=== PATIENT | male | born 1955 | race Caucasian/White ===

== ENCOUNTER 2017-05-21 18:13 | Inpatient (IN) | payer MEDICARE ==
[~2017-05-21] VITALS: Ht 167.6 cm; Wt 85.0 kg
--- NOTE | ~2017-05-21 | CST ---
Cardiac Perfusion Imaging Demographics Patient Name OLLIE Reilly Gender Male Patient Number [id number] Race Visit Number [id number] Ethnicity or Corporate ID Room Number 431 Accession Number [id number] Height 72 inches Date of 1955 Weight 185 pounds Age 62 year(s) BSA 2.06 m Referring Physician Ghada Olivia BMI 25.09 kg/m Interpreting Sharmila Romero MD Date of study 05/22/2017 Physician PATRICIA Whitley Supervising MD/MLP Sharmila Romero MD NM Technologist Jorge A Meraz, [facility] Ordering Physician Sharmila Romero MD Stress [place] program technician Stress ECG Reading Sharmila Romero MD Nurse Sreedhar Kauffman Physician PATRICIA Anderson The procedure was explained in detail to the patient. Risks, complications and alternative treatments were reviewed. Written consent was obtained. Medications Reviewed with Patient prior to Procedure. Procedure Procedure Type: Nuclear Stress Test:Pharmacological, Lexiscan Procedure Start time: 05/22/2017 08:10 End time: 05/22/2017 08:22 Indications: Chest discomfort, Diabetes and Hypertension. Risk Factors The patient risk factors include:former tobacco use, hypertension and insulin treated diabetes mellitus. Conclusions Summary Perfusion Images: The overall quality of the study is good. Left ventricular cavity is noted to be normal on the stress and rest studies. There is no evidence of abnormal lung activity. The right ventricle is not visualized and cannot be assessed. Stress SPECT images and Rest SPECT images demonstrate homogenous tracer distribution throughout the myocardium except for a decrease in uptake in the area involving the inferior wall consistent with diaphragmatic attenuation. Gated SPECT imaging reveals normal myocardial thickening and wall motion. The left ventricular ejection fraction was calculated to be 61%. Impression ECG portion of stress test is clinically negative for ischemia by diagnostic criteria. Myocardial perfusion imaging is normal. The inferior wall matched defect is consistent with diaphragm attenuation. Overall left ventricular systolic function was normal without regional wall motion abnormalities. Compared to the prior study from Sep 2016, the current study reveals no change. Stress Protocols Resting ECG Normal sinus rhythm. Resting HR:63 bpm Resting BP:120/90 mmHg Stress Protocol:Pharmacologic Predicted HR: 157 bpm Test duration: 06:00 min Reason for termination:Infusion complete ECG Findings No ECG changes suggestive of ischemia. Arrhythmias No rhythm abnormality. Complications Procedure complication: None. Stress Interpretation Appropriate hemodynamic response to Lexiscan. No significant ST-T wave changes with Lexiscan. ECG portion is negative for ischemia by diagnostic criteria. Imaging Results Summed scores - Summed stress score: 5 - Summed rest score: 2 - Summed difference score: 3 Stress ejection Ejection fraction:62 % EDV :120 ml ESV :46 ml Stroke volume :74 ml LV mass :130 gr Imaging Protocols Rest Stress Isotope:Tc99m Myoview IV Isotope: Tc99m Myoview IV Isotope dose:10.5 mCi Isotope dose:31.9 mCi Date:05/22/2017 06:35 Date:05/22/2017 08:10 Technique: SPECT Technique: Gated Supine SPECT Supine IV remains in place after procedure. Scan Time:30 minutes post injection Scan Time:15-30 minutes post injection Procedure Medications - Regadenoson (Lexiscan) 0.4 mg IV over 10-15 sec. I.V. 0.4 mg. Medications administered per verbal order and read back to physician prior to administration. Medical History Admission Data Admission date: 05/21/2017 Admission Time: 20:35 Hospital Status: Inpatient. Signatures
--- NOTE | ~2017-05-21 | ECH ---
Transthoracic Echocardiography Report (TTE) Demographics Patient Name AMBIKA LEVIN Date of Study 05/22/2017 Patient Number [id number] Visit Number [id number] Date of 1955 Room Number 431 Accession Number [id number] Gender Male Age 62 year(s) Referring Ghada Olivia Mud Temperer Brittnee Alarcon Physician RDCS Physician Interpreting King Ayush De La Garza MD Surgical Technology Instructor Physician Supervising Ordering Physician Ghada Olivia MD/MLP Nurse Stress Network Operations Lead Conclusions Contractility Score Summary Normal Left Ventricular contractility was noted. Summary Technically adequate exam. The estimated left ventricular ejection fraction is 55-60%. No significant valvular abnormalities. Procedure Type of Study TTE procedure:Echo Complete SF. Procedure Date Date: 05/22/2017 Start: 09:42 AM Technical Quality: Adequate visualization Indications:Chest pain and Diabetes. Appropriate Use Criteria: 9 Height: 72 inches Weight: 185 pounds BSA: 2.06 m Rhythm: NSR HR: 69 bpm BP: 136/82 mmHg M-Mode/2D Measurements LV Diastolic Dimension: 5.11 cm LV Systolic Dimension: 3.6 cm LV Septum Diastolic: 0.81 cm LV PW Diastolic: 0.79 cm AO Root Dimension: 3.21 cm Cardiac Output: 4.92 l/min LA Dimension: 2.85 cm Cardiac Index: 2.39 l/min*m RV Diastolic Dimension: 2.84 cm LA volume index: 22 ml/m LVOT: 2.26 cm LVOT VTI: 17.78 cm RV Base: 2.7 cm LV Stroke volume: 71.29 ml RV Mid: 1.7 cm LV Stroke volume index: 34.61 ml/m TAPSE: 2.4 cm TDI-S': 14 cm/s Doppler Measurements AV Peak Velocity: 1.04 m/s MV Peak E-Wave: 0.81 m/s AV Peak Gradient: 4.3 mmHg MV Peak A-Wave: 0.54 m/s AV Mean Gradient: 2.82 mmHg MV E/A Ratio: 1.49 LVOT Peak Velocity: 0.78 m/s MV P1/2t: 60.1 msec AV Area (Continuity):3.16 cm MV Deceleration Time: 211.3 msec TR Velocity:2.64 m/s MV Area (PHT): 3.66 cm TR Gradient:27.88 mmHg PV Peak Velocity: 0.68 m/s Estimated RAP:3 mmHg PV Peak Gradient: 1.86 mmHg Estimated RVSP: 31 mmHg Estimated PASP: 30.88 mmHg E' Septal Velocity: 0.1 m/s A' Septal Velocity: 0.1 m/s E' Lateral Velocity: 0.14 m/s A' Lateral Velocity: 0.12 m/s RA Area: 11.06 cm Findings Left Ventricle Normal left ventricle size and function. Diastolic assessment reveals normal relaxation. Right Ventricle Normal right ventricle structure and function. Left Atrium Normal left atrial size. Right Atrium Normal right atrial size. Mitral Valve Normal mitral valve structure and function. Trivial mitral regurgitation by color Doppler. Aortic Valve The aortic valve is mildly sclerotic. Tricuspid Valve Normal tricuspid valve structure and function. Trivial tricuspid regurgitation by color Doppler. Normal pulmonary pressures. Pulmonic Valve The pulmonic valve is not well visualized. Pericardial Effusion No evidence of pericardial effusion. Miscellaneous Visualized portions of the aortic root and ascending aorta appear normal in size. Pleural Effusion No evidence of pleural effusion. Contractility Score LV regional wall motion:(0-Non visualized 1-Normal 2-Hypokinesis 3-Akinesis 4-Dyskinesis 5-Aneurysm) Signature
--- NOTE | 2017-05-24 12:56 | ER ---
ADMIT: 05/21/2017 RM/LOC: ER [facility] MR#: [id number] [id number] [place], [place] [address] AMBIKA LEVIN [address] [place] [address] Emergency Room Report SEX: M AGE: 62 : 1955 DATE: 05/21/2017 ADDENDUM: This patient comes to the ER because he has had chest pain for the last 12 hours. He states it comes and goes and really has difficulty telling me what seems to make it worse or better. The patient is here with his sister and denies any past medical history, but I am suspicions that he does have mild MR and is not a very good historian. He does say he has shortness of breath. On physical exam, his pain is over the left side of his chest, I cannot reproduce the pain. His abdomen is soft. Chest x-ray was negative. Cardiac enzymes were normal, but his blood glucose was 575 and to his knowledge, he has never been told he has diabetes. His sister says that three of their siblings have of an MD in their 50s. I did consult with Dr. Anderson concerning treatment of this patient. I then spoke with Dr. Urrutia, who is on city call and she will admit this patient. I also called Dr. Louise to let him know that Dr. Urrutia ordered a stress test for him tomorrow. Please see my T-sheet. APRYL Wright / Rian Anderson MD / dariela JOB #: [id number] CC: Jamari Brown MD, Attending Physician Jacquie Urrutia MD, Family Physician
[2017-05-24] MEDS ORDERED: GLUCOPHAGE-DPS500 MG PO (20:21)
[2017-05-24] MEDS ORDERED: ASA CHILDREN'S81 MG PO (20:21)
[2017-05-24] MEDS ORDERED: AMARYL2 MG PO (20:21)
[2017-05-24] MEDS ORDERED: COLACE-DPS100 MG PO (20:22)
[2017-05-24] MEDS ORDERED: TYLENOL DPS325 MG PO (20:22)
[2017-05-24] MEDS ORDERED: MAALOX DPS30 ML PO (20:22)
[2017-05-24] MEDS ORDERED: PEPCID DPS20 MG PO (20:22)
--- NOTE | 2017-05-25 14:39 | DS ---
ADMIT: 05/21/2017 RM/LOC: 431 [facility] MR#: [id number] [address] [address] AMBIKA [place]EV[place] [facility] [place] [address] Discharge Summary SEX: M AGE: 62 : 1955 ADMISSION DATE: 05/21/2017 DISCHARGE DATE: 05/23/2017 DISCHARGE DIAGNOSIS: 1. Atypical chest pain, resolved with normal echocardiogram with ejection fraction of 55% to 60%, and per reports, negative cardiac stress testing. 2. Poorly-controlled diabetes mellitus, type 2 with a hemoglobin A1c greater than 12. 3. Recent weight loss. 4. Gastroesophageal reflux disease. 5. History of prostate cancer. 6. Family history of heart disease. I spent less than 30 minutes on the discharge day activities. Harpreet Ratliff MD/ mando JOB #: [id number] CC: Jacquie Urrutia MD, Attending Physician Jacquie Urrutia MD, Family Physician
--- NOTE | 2017-05-25 21:55 | HP ---
ADMIT: 05/21/2017 RM/LOC: 431 [facility] MR#: [id number] [address] [address] AMBIKA LEVIN [address] [place] [address] History and Physical SEX: M AGE: 62 : 1955 DATE OF SERVICE: CHIEF COMPLAINT: Chest pain and diabetes. HISTORY OF PRESENT ILLNESS: Ambika is a 62-year-old, cognitively impaired gentleman who presented with chest discomfort. He describes it as a chest pain or tightness that comes and goes. His sense of time is not very accurate. He was not able to tell me how long this has been going on, but his sister mentioned that she has noted more dyspnea on exertion when he does things. He feels like the pain when it is happening, it lasts about 10 minutes and then will resolve. No associated vomiting or shortness of breath, but like I mentioned, his sister noted progressive shortness of breath with activity. He has had hot flashes in the past. He has no known cardiac disease but there is a family history. He was brought in due to nonspecific changes on his EKG and family history. At this time, he is also noted to have a blood sugar of 575. He is unaware of diabetes, but on further questioning when the dietitian presented, he had mentioned he watches his diet and it sounds like he has actually been educated little bit. His sister was present and wondered what his sugars have been doing. She was not aware of any actual diabetic diagnoses. I did review the old charts in the [facility] and found that he was "borderline diabetic" in 2003. He was in the hospital here in September and at that time, he had an A1c performed that was 6.3. It sounds like he has been watching his diet to some degree. When questioned, he has had increased thirst and weight loss. PAST MEDICAL HISTORY: Prostate cancer, left lobe adenocarcinoma [place] [facility], 12/05/2015 status post radiation, sees Dr. Sandra. Diabetes - borderline in 2004 at least. MEDICATIONS: None. ALLERGIES: NONE. SOCIAL HISTORY: He is single. Currently, lives alone in his mom's house as she in 2016 or so. He is disabled due to his cognitive abilities. He is a nonsmoker. Rare alcohol. Lives alone. FAMILY HISTORY: Diabetes in his mother and father. Heart disease in his father with an MS at 83. Brother had an MS at 63 and survived. Sister with CABG at 25 with what sounds like valve disease. Another sister with CABG at 65. Mother of cancer thought to be possible lung. REVIEW OF SYSTEMS: Chest pain with some hot flashes and weight loss. Dyspnea on exertion. Elevated ferritin was noted in September up to . PHYSICAL EXAM: VITAL SIGNS: Blood pressure 121/88, pulse is 78, respirations 20, and temp 98.2. GENERAL: This is a well-developed, well-nourished, gentleman who is currently lying in bed. ADMIT: 05/21/2017 RM/LOC: 431 [facility] MR#: [id number] [address] [address] AMBIKA LEVIN [address] [place] [address] History and Physical SEX: M AGE: 62 : 1955 SKIN: Warm and dry. HEENT: Normocephalic, atraumatic. Smiles a lot. Teeth, his dentition in pretty good repair. Mucous membranes are moist. NECK: Supple. LUNGS: Clear to auscultation. Nonlabored. No wheezing. CARDIOVASCULAR: Regular without murmur or gallop. No ectopy. No bruits. ABDOMEN: Soft, nondistended. Bowel sounds present. and RECTAL: Deferred. EXTREMITIES: Without edema. IMPRESSION: 1. Chest pain. 2. Diabetes type 2 with poor control. 3. Weight loss. 4. Elevated ferritin in September 2016. 5. History of prostate cancer. DISCUSSION: Lot of confusion with how much he knew about his diabetes. Sounds like he has had some awareness, but really not following anything and not being on any medication. We will do some education, start some things, and see how it goes. On the heart, since he was admitted he has actually gone down and had a nuclear stress test that was negative. He apparently had one in September which was not relayed to me. Echo is pending. PLAN: 1. Nuclear stress test. 2. Echo. 3. Diabetic education for medication and nutrition. 4. Increase activity. 5. We will do Amaryl and Glucophage. Hopefully things will improve enough that he will be able to go home in the next day or so with close followup. He previously had seen Dr. Roblero and really does not follow up with many people at all, so he will need to present for followup here in a couple weeks. Jacquie Urrutia MD/ dariela JOB #: [id number] CC: Jacquie Urrutia, Attending Physician Jacquie Urrutia, Family Physician
== END 2017-05-23 11:25 | disposition home or self-care (01) | DRG 313 ==
LOC: ER 18:13 → 4PCU 20:35
PROVIDERS: ADMIT Internal Medicine
DX: R07.89 Other chest pain (principal); E11.65 Type 2 diabetes mellitus with hyperglycemia; F70 Mild intellectual disabilities; R63.4 Abnormal weight loss; K21.9 Gastro-esophageal reflux disease without esophagitis; Z82.49 Family history of ischemic heart disease and other diseases of the circulatory system; Z85.46 Personal history of malignant neoplasm of prostate

== ENCOUNTER 2017-06-04 13:04 | Observation (INO) | payer MEDICARE ==
[~2017-06-04] VITALS: Ht 167.6 cm; Wt 87.5 kg
--- NOTE | ~2017-06-04 | DS ---
ADMIT: 06/04/2017 RM/LOC: 421 [facility] [id number] [id number] [address] [address] AMBIKA SELLERS [facility] [place] [address] Discharge Summary SEX: M AGE: 62 : 1955 ADMISSION DATE: 06/04/2017 DISCHARGE DATE: 06/05/2017 DISCHARGE DIAGNOSES: 1. Chest pain. 2. Diabetes mellitus, type 2, noninsulin dependent without complication with hyperglycemia. 3. Hypertension, essential. 4. Gastroesophageal reflux disease. 5. Hypertriglyceridemia. SERVICE: Lizzy Maldonado MD, Inpatient Medicine Service. REFERRING PHYSICIAN: Emergency Department. PRIMARY PROVIDER: Fanny Mckinney MD. CONSULTS: None. PROCEDURES: 1. Chest x-ray, negative study. 2. EKG, normal sinus rhythm. PERTINENT HISTORY, PHYSICAL, AND HOSPITAL COURSE: Mr. Sellers is a 62-year-old male with history for high functioning mental delay, newly diagnosed diabetes mellitus type 2, hypertension, GERD, and hypertriglyceridemia who presented to the Emergency Department for the complaint of chest pain radiating to the left shoulder, shortness of breath, nausea, and vomiting x1. The patient was walking to the bus stop, he thought two miles, when he started noticing chest tightness that persisted intermittently throughout the day. He has family history of coronary artery disease with both parents and two siblings having CAD with either bypass, SC, or stent placement. He had been seen two weeks ago in the Emergency Department for similar episode in which he was diagnosed with diabetes mellitus type 2 with a A1c of 12.7. Started on p.o. medications at that time. Cardiac enzymes, stress test, EKG, echocardiogram essentially negative. Triglycerides slightly elevated. This visit, cardiac enzymes with troponin and EKG trended all negative. The patient did require 20 units total of insulin for elevated glucose during this observation stay. His metformin was increased to 1000 mg p.o. b.i.d. Increase in glyburide to 4 mg p.o. daily. Ideally, we recommend initiating insulin for A1c greater than 12 although with the patient's special needs and support system we feel the best option is to continue with p.o. medication and have the patient follow up with primary care provider. The patient does have a sister, Shante, that assists with setting up medications and can get the patient to physicians as needed. The patient also started on metoprolol for CAD risk and essential hypertension. Simvastatin started for CAD risk as well hypertriglyceridemia. The patient currently takes aspirin 81 mg p.o. daily. The patient currently takes Pepcid 20 mg p.o. b.i.d. for GERD. I did contact sister, Shante, as she is POA and discussed findings, recommendations, and ADMIT: 06/04/2017 RM/LOC: 421 [facility] MR#: [id number] [facility] [address] [address] AMBIKA SELLERS [address] [place] [address] Discharge Summary SEX: M AGE: 62 : 1955 orders. DISCHARGE CONDITION: Good. DISPOSITION: Discharged home. MEDICATIONS: 1. Metformin 1000 mg p.o. b.i.d. 2. Glyburide 4 mg p.o. daily. 3. Simvastatin 20 mg p.o. at bedtime. 4. Aspirin 81 mg p.o. daily. 5. Lopressor 12.5 mg p.o. b.i.d. 6. Pepcid 20 mg p.o. b.i.d. 7. Maalox 30 mL p.o. q.6 hours as needed for reflux. INSTRUCTIONS: 1. The patient is to meet with wellness educator before discharge for glucometer, glucometer training, and refresher on diet. The patient is to keep a journal noting random blood sugars at least twice daily, then to take to followup with primary care provider in five to seven days to review. 2. Followup instructions with primary care provider/Dr. Mckinney in five to seven days. 3. The patient is a full code. 4. Diet: ADA cardiac diet. Nikki Gil APRN / Lizzy Maldonado MD / njgisela JOB #: [id number] CC: Lizzy Maldonado MD, Attending Physician Lizzy Maldonado MD, Family Physician
[~2017-06-04 13:04] MED LIST: AMARYL2 MG PO; ASA CHILDREN'S81 MG PO; COLACE-DPS100 MG PO; GLUCOPHAGE-DPS500 MG PO; MAALOX DPS30 ML PO; PEPCID DPS20 MG PO; TYLENOL DPS325 MG PO
--- NOTE | 2017-06-05 08:42 | HP ---
ADMIT: 06/04/2017 RM/LOC: 421 [facility] MR#: [id number] [address] [address] AMBIKA SELLERS [address] [place] [address] History and Physical SEX: M AGE: 62 : 1955 DATE OF SERVICE: CHIEF COMPLAINT: Chest pain/tightness, nausea, vomiting x1, and shortness of breath. HISTORY OF PRESENT ILLNESS: Mr. Sellers is a 62-year-old, male with recent history of new onset type 2 diabetes, hypertension, GERD, and hypertriglyceridemia presented to the Emergency Department today for complaint of chest tightness with shortness of breath, nausea, and vomiting x1. The patient stated after walking to the bus stop this morning, he became short of breath and started having intermittent chest tightness that persisted throughout the day. His sister stated that he had nausea and he vomited 1 time today. He denied fevers, chills, or night sweats. He denied diaphoresis or syncopal episodes. He also denied headache or fatigue. The patient did state for breakfast that he only had coffee with 3 packets of sweetener and did complain of some acid reflux type symptoms with burning in the chest and throat. For lunch, he stated he had chicken breast, green beans, and banana bread. In the Emergency Department, chest x-ray was negative. Cardiac enzymes with troponin and EKG all negative. The patient recently was admitted to the hospital for chest pain rule out receiving echocardiogram, serial cardiac enzymes with troponin, chest x-ray, lipid panel, TSH, and stress test which were all essentially negative except for elevated triglycerides at 226 and HDL of 28. Also noted on that hospital stay on 05/22/2017, new onset diabetes mellitus type 2 with an A1c of 12.7, was diagnosed. He was started on Amaryl 2 mg p.o. daily, Glucophage 500 p.o. daily as well as some Pepcid 20 mg b.i.d. for GERD. There is a concern for ACS secondary to family history including both parents and 2 siblings with some form of CAD with stents or bypass. PAST MEDICAL HISTORY: 1. Prostate adenocarcinoma with radiation in 2016. 2. Mild mental retardation. SURGICAL HISTORY: None. FAMILY HISTORY: Father from [place] and history of diabetes mellitus. Mother, lung cancer and diabetes mellitus as well as CAD. Brother and sister both CAD with either stents or bypass. MEDICATIONS: 1. Amaryl 2 mg p.o. daily. 2. Aspirin 81 mg p.o. daily. 3. Glucophage 500 mg p.o. daily. 4. Pepcid 20 mg p.o. b.i.d. ALLERGIES: NO DRUG ALLERGIES. REVIEW OF SYSTEMS: A complete review of systems obtained and are otherwise negative except per HPI. ADMIT: 06/04/2017 RM/LOC: 421 [facility] MR#: [id number] [address] [address] [place] [address] History and Physical SEX: M AGE: 62 : 1955 PHYSICAL EXAMINATION: VITAL SIGNS: 120/79 with a MAP of 92, heart rate 64, respirations 18, temperature 98.2 tympanic. GENERAL: No acute distress. Alert and oriented. SKIN: Warm and dry without rashes or lesions. HEENT: Normocephalic and atraumatic. Poor dental hygiene. Mucous membranes moist. PERRLA. NECK: Supple without JVD or lymphadenopathy. CARDIOVASCULAR: Regular rate and rhythm without murmur, gallop, or rub. No edema noted. Capillary refill less than 2 seconds. LUNGS: Clear to auscultation without wheeze, rhonchi, or rales. ABDOMEN: Bowel sounds present. Nondistended. Epigastric region tender to palpation that radiates to the left chest wall. Both right and left upper quadrant tenderness, though less so on palpation. BACK: No costovertebral tenderness or trauma noted. LABORATORY DATA: WBC 5.0, hemoglobin 13.4, hematocrit 38.4, and platelets 167. Chemistries; sodium 138, potassium 4.0, chloride 105, carbon dioxide 26, BUN 12, creatinine 0.8, glucose 268. CK 29, MB 0.6, relative index 2.1, and troponin less than 0.015. Chest x-ray, no acute findings. ASSESSMENT AND PLAN: 1. Rule out ACS, high risk: CK-MB and troponin q.6 x2 more occurrences. EKG in the a.m. Routine tele orders. Aspirin 81 mg p.o. daily and Lopressor 12.5 mg p.o. b.i.d. 2. Diabetes mellitus type 2 with hyperglycemia: Accu-Cheks a.c. and at bedtime with sliding scale insulin, moderate dose. Diet, ADA cardiac diet. 3. Epigastric pain: Added lipase and LFTs to current lab order. Gallbladder ultrasound if warranted. 4. Hypertension: Lopressor and telemetry. 5. Gastroesophageal reflux disease: Pepcid and Maalox. 6. Hypertriglyceridemia: Based on 05/22/2017 labs. Statin not been started assumed that dietary modifications are being attempted. Per patient, he seems to be abiding by this. May consider starting statin prior to discharge or discussing with primary care provider for outpatient. Nikki Gil APRN / Lizzy Maldonado MD / dariela JOB #: [id number] CC: Lizzy Maldonado, Attending Physician Lizzy Maldonado, Family Physician
--- NOTE | 2017-06-06 13:02 | ER ---
ADMIT: 06/04/2017 RM/LOC: 421 [facility] MR#: [id number] [address] [address] OLLIE AMBIKA Melba [address] [place] [address] Emergency Room Report SEX: M AGE: 62 : 1955 DATE: 06/04/2017 ADDENDUM: This patient comes to the ER because he is having chest pain since early this morning. He states that the pain is in his chest. He points to his sternum and unable to reproduce the pain. He was recently diagnosed this month as having new onset diabetes and has been started on metformin. He comes in with his niece. He is high functioning mentally challenged. His niece who is with him thinks that he has been short of breath today and seems winded when he exerts himself. His cardiac enzymes were normal. EKG showed a normal sinus rhythm. His chest x-ray was normal. His niece does say there is a substantial family history of having heart condition with heart attacks in both of his parents and his siblings. I did speak with the nurse practitioner who is on-call for Dr. Maldonado. This patient will be admitted for observation. DIAGNOSES: 1. Chest pain. 2. Recently diagnosed diabetes. Please see my T-sheet. APRYL Wright / Akbar Oconnell MD / modl JOB #: [id number] CC: Lizzy Maldonado MD, Attending Physician Lizzy Maldonado MD, Family Physician
[2017-06-06] MEDS ORDERED: LOPRESSOR DPS50 MG PO (19:57)
[2017-06-06] MEDS ORDERED: ZOCOR DPS20 MG PO (19:58)
== END 2017-06-05 14:37 | disposition home or self-care (01) ==
LOC: ER 13:04 → 4PCU 14:56
PROVIDERS: ADMIT Internal Medicine
DX: R07.9 Chest pain, unspecified (principal); E11.65 Type 2 diabetes mellitus with hyperglycemia; I10 Essential (primary) hypertension; K21.9 Gastro-esophageal reflux disease without esophagitis; E78.1 Pure hyperglyceridemia; Z79.82 Long term (current) use of aspirin; Z79.899 Other long term (current) drug therapy